=== PATIENT | female | born 1945 | race Caucasian/White ===

== ENCOUNTER 2016-11-18 06:38 | Emergency (ER) | payer MEDICARE, OTHER ==
[2016-11-18 06:27] LABS: ASCORBIC ACID (UR NOT ORDER) NEG (NEG); BILIRUBIN, URINE NEGATIVE (NEG); ER URINALYSIS TAT 0 Hrs 21 Mins; KETONE, URINE NEGATIVE (NEG); LEUKOCYTE ESTERASE(NOT OR MOD (NEG); NITRITE (URINE) POS (NEG); WBC (NOT ORDERED) (RFLEX) 114 (0-5)
[~2016-11-18 06:38] MED LIST: ASA5GR PO; ASAB PO; CELEXA40 MG PO; CENTRUM PO; COQ10100 MG OR; FISH OIL1200 MG PO; HERBAL TOP; KLONO1 PO; KRILLOIL PO; LEUCOVOR CA5 MG OR; LYRICA100 MG PO; LYRICA75 PO; MAGNESIUM PO; MAGOX4 PO; NUCYNTA50 MG PO; PLAVIX PO; PRENATAL VITAMIN; PROBIOTIC OTC PO; PROBIOTIC PO; PROTONIX PO; STOOL SOFTNER PO; VITAMIN K 2 PO; VITD PO; [UNRECOGNIZED DRUG - OTHER]; [UNRECOGNIZED DRUG - OTHER] TD
== END 2016-11-18 07:18 | disposition home or self-care (01) ==
LOC: ER 06:38
PROVIDERS: Nurse Practitioner
DX: N39.0 Urinary tract infection, site not specified (principal); F32.9 Major depressive disorder, single episode, unspecified; F41.9 Anxiety disorder, unspecified; Z86.73 Personal history of transient ischemic attack (TIA), and cerebral infarction without residual deficits; G50.0 Trigeminal neuralgia; Z79.82 Long term (current) use of aspirin; Z79.899 Other long term (current) drug therapy
CPT/HCPCS: 80053; 81001; 85025; 87077; 87086; 87186; 96372; 99284; A9270-GY